=== PATIENT | female | born 1960 | race African-American/Black ===

== ENCOUNTER 2021-07-10 05:00 | Emergency (ER) | payer MEDICAID ==
[~2021-07-10] VITALS: Ht 167.6 cm; Wt 114.0 kg
[2021-07-10] MEDS ORDERED: PREDNISONE 20MG TABLET PO STA (05:33)
[2021-07-10] MEDS ORDERED: IPRATROPIUM BROMIDE (0.02%) 0.5MG/2.5ML NEB HHN STA (05:33)
[2021-07-10] MEDS ORDERED: ALBUTEROL (0.083%) 2.5MG/3ML NEB HHN STA (05:33)
[2021-07-10] MEDS ORDERED: ALBU6.7H9 INH (07:18)
[2021-07-10] MEDS ORDERED: P50 MT ×2 (07:18→07:20)
[2021-07-10] MEDS ORDERED: ALBU6.7H15 INH (07:20)
[2021-07-10 07:31] VITALS: BP 151/77
== END 2021-07-10 07:33 | disposition home or self-care (01) ==
LOC: ER 05:00
DX: J45.901 Unspecified asthma with (acute) exacerbation (principal); J06.9 Acute upper respiratory infection, unspecified; I10 Essential (primary) hypertension; Z90.49 Acquired absence of other specified parts of digestive tract; Z88.0 Allergy status to penicillin
CPT/HCPCS: 93005; 94640; 99283; J7512; Z7610

== ENCOUNTER 2021-12-31 23:35 | Emergency (ER) | payer MEDICAID, OTHER ==
[~2021-12-31] VITALS: Ht 167.6 cm; Wt 115.9 kg
[~2021-12-31 23:35] MED LIST: ALBU6.7H15 INH; ALBU6.7H9 INH; P50 MT
[2022-01-01] MEDS ORDERED: IBUPROFEN 600MG TABLET PO STA (00:31)
[2022-01-01 00:49] VITALS: BP 153/87
[2022-01-01] MEDS ORDERED: IBUP-2029 PO (00:59)
[2022-01-01] MEDS ORDERED: CLIN300C12 PO (00:59)
[2022-01-01] MEDS ORDERED: SULF1TAB48 PO (00:59)
[2022-01-01] MEDS ORDERED: ERYT1OIN6 RIGHTEYE (00:59)
== END 2022-01-01 01:19 | disposition home or self-care (01) ==
LOC: ER 23:35
DX: H00.033 Abscess of eyelid right eye, unspecified eyelid (principal); K02.9 Dental caries, unspecified; I88.8 Other nonspecific lymphadenitis; Z88.0 Allergy status to penicillin
CPT/HCPCS: 99283